=== PATIENT | male | born 1955 | race Caucasian/White ===

== ENCOUNTER 2023-07-26 11:08 | Day surgery (SDC) | payer MEDICARE ==
[~2023-07-26] VITALS: Ht 175.3 cm; Wt 90.9 kg
[~2023-07-26 11:08] MED LIST: BUSPIRONE HCL10 MG PO; IBLOOD GLUCOSE TEST STRIP 1 EA TEST VI PRN; IBUPROFEN600 MG PO; LACTATED RINGER'S 1,000 ML IV SCH; LIDOCAINE HCL 1% 5 ML SDV INJ ONE; MIDAZOLAM HCL 5 MG/5 ML VIAL IV PRN; OFIRMEV1000 MG/10 IV; OXYCODON-ACETA1 EAC2 PO; TYLENOL EXTRA500 MG PO; fentaNYL citrate 100 MCG/2 ML VIAL IV PRN
[2023-07-26 11:21] VITALS: BP 142/83
[2023-07-26] MEDS ORDERED: fentaNYL citrate 100 MCG/2 ML VIAL ONE (11:36)
[2023-07-26] MEDS ORDERED: MIDAZOLAM HCL 5 MG/5 ML VIAL ONE (11:37)
--- NOTE | 2023-07-26 12:18 | NUR ---
07/26/23 Brissa8 Caron Tejeda 1210- PT ARRIVES TO PACU REACTIVE TO VOICE. PT UPDATED THAT HIS PROCEDURE IS OVER. PT FALLS BACK TO SLEEP. RESP EVEN AND UNLABORED. OXYGEN SAT LOW 90'S ON 2L VIA CO2 NC.
[2023-07-26 12:45] VITALS: BP 134/83
--- NOTE | 2023-07-27 22:29 | OR ---
[facility] [address], [place] [address] Signed DATE OF OPERATION: 07/26/2023 SURGEON: Geronimo Barber MD PREOPERATIVE DIAGNOSIS: Colon screening. POSTOPERATIVE DIAGNOSES: 1. Sigmoid pedunculated polyp (excised). 2. Extensive sigmoid and left-sided diverticulosis. PROCEDURE: Total colonoscopy to cecum with hot snare polypectomy x1. ANESTHESIA: Intravenous sedation; fentanyl 100 mcg and Versed 5 mg. INDICATION: This 67-year-old white man is a patient of Dr. Betsy Jones. He underwent colonoscopy by Dr. Jones greater than 10 years ago in [place], [place], which was normal at that time. He is currently asymptomatic and no bleeding, diarrhea or constipation. He is admitted at this time to undergo screening colonoscopy. He understands the risk of bleeding, infection, and perforation. FINDINGS: The prep was excellent. Complete colonoscopy was undertaken to the cecum without question. Had numerous diverticula of the sigmoid and left colon. There was a pedunculated polyp of the sigmoid at 20 cm which was excised with hot snare polypectomy technique. PROCEDURE IN DETAIL: The patient was brought to the endoscopy suite and placed in lateral decubitus position, given intravenous sedation to the point of slurred speech and nystagmus with full cardiopulmonary monitoring. Digital rectal examination was normal. Olympus video colonoscope was passed in the rectum and manipulated throughout the colon ultimately intubating the cecum itself. The ileocecal valve and appendiceal orifice were normal. The scope was withdrawn from that point of examination showed no sign of abnormality into the left colon where diverticulosis was once again seen. The scope was withdrawn in the mid sigmoid colon at approximately 20 cm, a relatively violaceous Electronically Signed By: GERONIMO BARBER MD 07/27/23 2229 PATIENT NAME: DINA ROBLERO OPERATIVE REPORT DATE OF : 53 REPORT #: [id number] PHYSICIAN: GERONIMO BARBER MD PCP: BETSY JONES MD REPORT IS CONFIDENTIAL AND NOT TO BE RELEASED WITHOUT AUTHORIZATION [facility] [address], [place] [address] Signed pedunculated and elongated polyp was noted. This was excised with no problem using hot snare polypectomy technique. The polyp was grasped and ultimately removed. The scope was reintroduced and passage to the left colon undertaken once again confirming diverticulosis in the polypectomy site hemostatic. Further withdrawal showed only diverticulosis. The rectum was normal on retroflexed view. The scope was removed. The patient was taken to the recovery room in good condition. CONCLUDING DIAGNOSES: 1. Pedunculated polyp at 20 cm, excised. 2. Extensive sigmoid and left-sided diverticulosis. PLAN: Recommend high-fiber diet. Repeat colonoscopy in three years, sooner if clinically indicated. He will return to the ongoing care of Dr. Jones. MD JUNE Galeana/GILMAR /[id number] cc: Betsy Jones MD Copies: BETSY JONES MD ~ Electronically Signed By: GERONIMO BARBER MD 07/27/23 2229 PATIENT NAME: DINA ROBLERO DIDIER OPERATIVE REPORT DATE OF : 53 REPORT #: [id number] PHYSICIAN: GERONIMO BARBER MD PCP: BETSY JONES MD REPORT IS CONFIDENTIAL AND NOT TO BE RELEASED WITHOUT AUTHORIZATION
--- NOTE | 2023-07-29 10:46 | PATH ---
[facility] [address] [place], [place] [address] Signed SPECIMEN(S): A SIGMOID POLYP SPECIMEN SOURCE: A. SIGMOID POLYP CLINICAL HISTORY: Surveillance colonoscopy. Polyps, diverticulosis. FINAL PATHOLOGIC DIAGNOSIS: Colon, sigmoid, polypectomy: - Tubular adenoma BRP MICROSCOPIC EXAMINATION: Histologic sections of all submitted blocks are examined by light microscopy. These findings, together with the gross examination, support the pathologic diagnosis. GROSS DESCRIPTION: The specimen, labeled and designated "Rafi sigmoid colon polyp," is received in formalin and consists of one alston soft tissue fragment, 0.8 cm. Resection margin is inked and specimen is bisected. Entire specimen is submitted in (A1). JS (under the direct supervision of a pathologist) The Gross Description was prepared using a voice recognition system. The report was reviewed for accuracy; however, sound-alike word errors, addition and/or deletions may occur. If there is any question about this report, please contact Client Services. ADDITIONAL NOTES: Immunohistochemical and/or in situ hybridization studies if performed in this case included appropriate positive controls that reacted as expected. This test was developed and its performance characteristics determined by [email or web address]. It has not been cleared or approved by the U.S. Food and Drug Administration. The FDA has determined that such clearance or approval is not necessary. This test is used for clinical purposes. It should not be regarded as investigational or for research. [email or web address] is certified under the Clinical Laboratory Improvement Amendments of 1988 (CLIA) as qualified to perform high complexity clinical laboratory testing. PATIENT NAME: DINA ROBLERO PATHOLOGY DATE OF : 53 REPORT #: [id number] PHYSICIAN: COCO CORDOVA PCP: BETSY FLORES MD REPORT IS CONFIDENTIAL AND NOT TO BE RELEASED WITHOUT AUTHORIZATION [address] [place] [address] Signed PERFORMING LABORATORY: Technical component [email or web address] [address] (CLIA# [id number]). Professional interpretation was performed by [facility] [place] [address] (CLIA#: [id number]). Diagnostician: Benoit Selby MD Pathologist Electronically Signed 07/29/2023 Copies: ~ PATIENT NAME: DINA ROBLERO PATHOLOGY DATE OF : 53 REPORT #: [id number] PHYSICIAN: COCO CORDOVA PCP: BETSY FLORES MD REPORT IS CONFIDENTIAL AND NOT TO BE RELEASED WITHOUT AUTHORIZATION
== END 2023-07-26 12:52 | disposition home or self-care (01) ==
LOC: DS 11:08 → OPS 11:08
PROVIDERS: ATTEND Surgery
PROC: 0DBN8ZZ Excision of Sigmoid Colon, Via Natural or Artificial Opening Endoscopic (ICD-10-PCS; principal; 2023-07-26 12:30)
DX: Z12.11 Encounter for screening for malignant neoplasm of colon (principal); D12.5 Benign neoplasm of sigmoid colon; K57.30 Diverticulosis of large intestine without perforation or abscess without bleeding; K43.9 Ventral hernia without obstruction or gangrene; M62.08 Separation of muscle (nontraumatic), other site; Z87.442 Personal history of urinary calculi; Z88.0 Allergy status to penicillin; Z88.2 Allergy status to sulfonamides; Z88.5 Allergy status to narcotic agent
CPT/HCPCS: 99153; G0500; J2250; J3010; J7121